=== PATIENT | female | born 1945 | race Caucasian/White ===

== ENCOUNTER 2016-05-15 15:39 | Emergency (ER) | payer OTHER ==
[~2016-05-15] VITALS: Wt 78.0 kg
[~2016-05-15 15:39] MED LIST: LOPE2CAP PO; NAPR-260 PO; ONDA4TAB35 PO
[2016-05-15] MEDS ORDERED: LOSA25TA5 PO (16:21)
[2016-05-15] MEDS ORDERED: CELE100C PO (16:21)
[2016-05-15] MEDS ORDERED: ACETAMINOPHEN/CODEINE #3 TAB PO ONE (16:30)
[2016-05-15] MEDS ORDERED: LABETALOL HCL 20MG INJ IV ONE (16:30)
--- NOTE | 2016-05-15 16:49 | ERD ---
ER Documentation Chief Complaint Date/Time DATE: 05/15/16 TIME: 16:44 Chief Complaint BILATERAL LEG PAIN, DIZZY, HTN PER FAMILY X 1 WEEK HPI 71-year-old female with a history of hypertension, hyperlipidemia, and chronic arthritis presenting with low back pain. 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 After this she started developing some low back pain described as aching, nonradiating, worse with walking, laying down, sitting. Pain is rated at a 9 out of 10. She has associated burning in her anterior thighs and some tingling and burning in her feet when she walks. She denies any urinary incontinence or retention. She denies any bowel incontinence. She is able to walk, but this is painful for her. She is taking Celebrex for her arthritis, but this has not been helping her current pain. She saw her primary care doctor about 3 days ago and was not prescribed any medications. She denies any chest pain, shortness of breath, abdominal pain. A urinalysis was done when she was at her primary care doctor's office and was normal. ROS All systems reviewed and are negative except as per history of present illness. Medications Home Meds Active Scripts Acetaminophen with Codeine (Acetaminophen-Cod #3 Tablet) 1 Each Tablet, 1 TAB PO Q6H Y for PAIN, #12 TAB Prov:RYAN MARIE MD 05/15/16 Reported Medications Losartan Potassium* (Losartan Potassium*) 25 Mg Tablet, 25 MG PO DAILY, TAB 05/15/16 Celecoxib* (Celebrex*) 100 Mg Capsule, 100 MG PO BID, CAP 05/15/16 Discontinued Scripts Naproxen* (Naprosyn*) 500 Mg Tablet, 500 MG PO BID Y for PAIN AND/OR INFLAMMATION, #20 TAB Prov:FLOYD MENDOZA DO 03/28/15 Loperamide Hcl* (Imodium*) 2 Mg Capsule, 2 MG PO .AFTER EA LOOSE BM Y for DIARRHEA, #10 TAB Prov:FLOYD MENDOZA DO 03/28/15 Ondansetron Hcl* (Zofran* ODT) 4 mg -ODT Tab.disper, 4 MG PO Q6 Y for NAUSEA AND /OR VOMITING, #10 TAB Prov:FLOYD MENDOZA DO 03/28/15 Allergies Allergies: Coded Allergies: Tetanus Vaccines and Toxoid (Unverified Allergy, Unknown, 05/15/16) PMhx/Soc History of Surgery: Yes (tubal ligation) Anesthesia Reaction: No Hx Miscellaneous Medical Probl: Yes (arthritis) Hx Alcohol Use: No Hx Substance Use: No Hx Tobacco Use: No Smoking Status: Never smoker FmHx Family History: No diabetes Physical Exam Vitals Vital Signs Date Time Temp Pulse Resp B/P Pulse Ox O2 Delivery O2 Flow Rate FiO2 05/15/16 18:54 70 16 149/82 96 Room Air 05/15/16 17:47 98.0 73 12 163/98 100 Room Air 05/15/16 15:47 98.0 82 12 161/86 100 Room Air 05/15/16 15:43 98.0 99 18 170/94 99 Physical Exam Const: Well-appearing, no distress Head: Atraumatic Eyes: Normal Conjunctiva, perrla, eomi ENT: Normal External Ears, Nose and Mouth. Neck: Full range of motion. No JVD. No meningismus. Resp: Clear to auscultation bilaterally Cardio: Regular rate and rhythm, no murmurs. 2+ radial pulses equal bilaterally. 2+ DP and PT pulses, equal bilaterally. Abd: Soft, non tender, non distended. Normal bowel sounds Skin: No petechiae or rashes Back: No midline or flank tenderness Ext: No cyanosis, or edema Neuro: M/S: Alert and oriented Face: EOMI, face and pharynx with normal sensation and function Motor: Normal strength throughout Sensation: Normal sensation throughout to light touch and painful stimuli Speech: Normal Cerebel: Normal coordination Normal gait Normal finger to nose DTR: 2+ and symmetric upper/lower extremities Psych: Normal Mood and Affect Results 24 hrs Current Medications Medications (Trade) Dose Ordered Sig/Betsy Route PRN Reason Start Time Stop Time Status Last Admin Dose Admin Labetalol HCl (Labetalol) 10 mg ONCE ONCE IV 05/15/16 16:30 05/15/16 16:30 DC Acetaminophen/ Codeine Phosphate (Tylenol No.3) 1 tab ONCE ONCE PO 05/15/16 16:30 05/15/16 16:31 DC 05/15/16 16:28 Hydromorphone HCl (Dilaudid) 1 mg ONCE STAT IV 05/15/16 18:42 05/15/16 18:43 DC Procedures/MDM X-ray lumbar spine: 1. No acute fracture or subluxation. 2. Mild to moderate multilevel degenerative disk disease. X-ray thoracic spine: 1. No acute fracture or subluxation of the thoracic spine. 2. Minimal levoscoliosis. The patient is neurovascularly intact on exam with unremarkable vitals. I have a low suspicion for spinal tumor as the patient has no history of cancer, night sweats, or weight loss. I have a low suspicion for aortic dissection, retroperitoneal hemorrhage, ureteral colic, pyelonephritis, bone or disc infection, cauda equina, cord compression, acute spinal fracture, or abscess. She was given Tylenol 3 for her pain with symptomatic improvement to a tolerable level. I believe the patient is stable for continued outpatient follow up with their PCP. Return precautions were discussed in detail. I recommended rest and analgesics. A prescription for Tylenol 3 was given. Departure Diagnosis: Primary Impression: Acute exacerbation of chronic low back pain Condition: Stable RYAN MARIE MD May 15, 2016 16:49
[2016-05-15 17:47] VITALS: TEMP 98
[2016-05-15] MEDS ORDERED: ACET1TAB40 PO (18:06)
--- NOTE | 2016-05-15 18:33 | RADRPT ---
PROCEDURE: Thoracic Spine. CLINICAL INDICATION: Lower thoracic pain. TECHNIQUE: 3 views of the thoracic spine. COMPARISON: None available FINDINGS: There is minimal levoscoliosis. The thoracic kyphosis is preserved without spondylolisthesis. The v ertebral body and disk heights are maintained. No acute fracture or subluxation is seen. There is mild multilevel endplate osteophytosis. The visualized lungs are clear. IMPRESSION: 1. No acute fracture or subluxation of the thoracic spine. 2. Minimal levoscoliosis. RPTAT: HTAR .Fito Huerta MD, MD Date Time Electronically viewed and signed by .Fito Huerta MD, on 05/15/2016 18:33 .R/
--- NOTE | 2016-05-15 18:37 | RADRPT ---
PROCEDURE: Lumbar Spine. CLINICAL INDICATION: Lower thoracic and upper lumbar spine pain. TECHNIQUE: Three views of the lumbar spine. COMPARISON: Thoracic spine x-rays performed concurrently. FINDINGS: The lumbar lordosis is preserved. There is grade 1 degenerative L4 anterolisthesis (4 mm). The verte bral body heights are maintained. No acute fracture or subluxation is seen. There is mild to modera te multilevel degenerative disk disease. IMPRESSION: 1. No acute fracture or subluxation. 2. Mild to moderate multilevel degenerative disk disease. RPTAT: HTAR .Fito Huerta MD, Date Time Electronically viewed and signed by .Fito Huerta MD, on 05/15/2016 18:36 .R/
[2016-05-15] MEDS ORDERED: HYDROmorphONE 1 MG/ML SYG IV STA (18:42)
[2016-05-15 18:54] VITALS: BP 149/82; PULSE 70; RESP 16
== END 2016-05-15 19:01 | disposition home or self-care (01) ==
LOC: E/R 15:39
DX: J45.901 Unspecified asthma with (acute) exacerbation (principal); I10 Essential (primary) hypertension
CPT/HCPCS: 72072; 72100

== ENCOUNTER 2016-05-25 15:32 | Emergency (ER) | payer OTHER ==
[~2016-05-25] VITALS: Ht 149.9 cm; Wt 66.0 kg
[~2016-05-25 15:32] MED LIST changes: +ACET1TAB40 PO; +CELE100C PO; -LOPE2CAP PO; +LOSA25TA5 PO; -NAPR-260 PO; -ONDA4TAB35 PO
[2016-05-25 15:37] VITALS: Ht 149.9 cm; Wt 66.0 kg
--- NOTE | 2016-05-25 17:56 | ERD ---
ER Documentation Chief Complaint Date/Time DATE: 05/25/16 TIME: 17:51 Chief Complaint SEEING FLASH LIGHTS B/L EYES , WITH PRESSURE ON LT EAR ONSET 0600 AM HPI Patient is a 71-year-old female who reports 7-8 episodes of momentary sensation of a noxious sound in her right ear and her vision going black. Patient denies flashing lights, denies other visual disturbance, denies focal weakness or focal numbness. She states that these episodes last for a split second. There is no sensation of a curtain going across her vision. Patient reports significant anxiety. This has been exacerbated recently since she has had pain in bilateral anterior thighs associated with numbness and difficulty walking. She states that the symptoms come and go. She was seen on May 16, and prescribed gabapentin. She followed up at an urgent care and was given prescriptions for Celebrex and duloxetine. She states that she initially had the symptoms that she describes today after taking these medications, and she describes the symptoms to these medications. However, she states that she is continuing to have these episodes after stopping the medication. Patient currently denies any symptoms. She denies experiencing any pain during these episodes. She denies vertigo. She denies depression. Patient reports a remote history of migraines. ROS All systems reviewed and are negative except as per history of present illness. Medications Home Meds Active Scripts Acetaminophen with Codeine (Acetaminophen-Cod #3 Tablet) 1 Each Tablet, 1 TAB PO Q6H Y for PAIN, #12 TAB Prov:RYAN MARIE MD 05/15/16 Reported Medications Losartan Potassium* (Losartan Potassium*) 25 Mg Tablet, 25 MG PO DAILY, TAB 05/15/16 Celecoxib* (Celebrex*) 100 Mg Capsule, 100 MG PO BID, CAP 05/15/16 Allergies Allergies: Coded Allergies: Tetanus Vaccines and Toxoid (Unverified Allergy, Unknown, 05/15/16) PMhx/Soc Past medical history: Hypertension, arthritis Past surgical history: Tubal ligation Social history: Denies tobacco or alcohol History of Surgery: Yes (tubal ligation) Anesthesia Reaction: No Hx Miscellaneous Medical Probl: Yes (arthritis) Hx Alcohol Use: No Hx Substance Use: No Hx Tobacco Use: No FmHx Family History: No coronary disease, No diabetes Physical Exam Vitals Vital Signs Date Time Temp Pulse Resp B/P Pulse Ox O2 Delivery O2 Flow Rate FiO2 05/25/16 15:37 98.1 98 18 174/84 99 Physical Exam Const: Alert, no acute distress, mildly anxious Head: Atraumatic Eyes: Normal Conjunctiva, pupils equally round reactive to light, extraocular movements intact, no nystagmus ENT: Normal External Ears, Nose and Mouth. Normal right tympanic membrane, no exudate or bulge. Neck: Full range of motion. No JVD. No meningismus. Resp: Clear to auscultation bilaterally, no wheeze, no rales Cardio: Regular rate and rhythm, no murmurs, 2+ pulses in 4 extremities. Abd: Soft, non tender, non distended. Skin: No petechiae or rashes Back: No midline or flank tenderness Ext: No cyanosis, or edema Neur: Awake and alert, cranial nerves II through XII intact bilaterally, strength and sensation intact throughout bilateral upper and lower extremities. No pronator drift, no dysmetria. Psych: Normal Mood and slightly anxious affect. Patient became teary-eyed during history. Procedures/MDM MDM: Patient is a 71-year-old female who presents with momentary episodes of a loud sound in her ear and feeling like her vision is going dark. She clearly is experiencing significant anxiety related to these episodes and acknowledges so. The patient has been seeking care on a number of occasions for transient numbness in her bilateral thighs. There is no tenderness on exam, the patient currently denies back pain or thigh pain. She is neurovascularly intact in the lower extremities. Her eye exam is grossly normal, and the patient denies any visual disturbance at this time. The patient attributes her symptoms to medications that were prescribed to her to treat was believed to be neuropathic pain. She stopped taking these medications. The patient is only sought care at the emergency department and urgent cares, and I have advised her to follow- up with a primary doctor who can appropriately follow her, make medication changes, and pursue further investigation of her symptoms and ongoing manner. I do believe that she may benefit from a neurology consult, but there is no evidence of an acute neurologic condition at this time. Advised her to return to the ER for symptoms the last more than 1 second, or for new concerns. Departure Diagnosis: Primary Impression: Neuropathy Additional Impression: Anxiety Condition: Stable Patient Instructions: Anxiety Reaction, Neuropathy, Peripheral Additional Instructions: Return to the ER immediately for new or worsening symptoms. Follow-up with your PMD in 1-2 days. Consider follow-up with a neurologist if you continue to experience numbness in her legs or other symptoms. ANTONIO FARFAN MD May 25, 2016 17:56
[2016-05-25 18:13] VITALS: BP 135/69; PULSE 77; RESP 18
== END 2016-05-25 18:14 | disposition home or self-care (01) ==
LOC: E/R 15:32
DX: G62.9 Polyneuropathy, unspecified (principal); I10 Essential (primary) hypertension
CPT/HCPCS: 99282